=== PATIENT | male | born 1945 | race Caucasian/White ===

== ENCOUNTER 2018-08-30 06:09 | Day surgery (SDC) | payer OTHER, MEDICARE ==
[2018-08-19 12:44] VITALS: BMI 21.3
[2018-08-30] MEDS ORDERED: oxyCODONE HCL 10 MG SUSTAINED ACTING TABLET PO ONE (07:14)
[2018-08-30] MEDS ORDERED: THROMBIN (RECOMBINANT) 5,000 UNIT VIAL TP ONE (07:19)
[2018-08-30] MEDS ORDERED: GUM MASTIC/STORAX/MSAL/ALCOHOL 1 DRP DROPSBTL MC ONE (07:19)
[2018-08-30] MEDS ORDERED: LIDOCAINE 1%/EPI 1:100000 (20 ML MULTI DOSE VIAL) ONE (07:19)
[2018-08-30] MEDS ORDERED: methylPREDNISolone ACET (DEPO) 40 MG/1 ML VIAL ONE (07:19)
--- NOTE | 2018-08-30 07:46 | HP ---
History & Physical Update - History History: No Change - Physical Physical: No Change - Assessment Assessment: No Change - Plan Plan: No Change
[2018-08-30] MEDS ORDERED: MIDAZOLAM HCL 2 MG/2 ML SINGLE DOSE VIAL ONE ×2 (08:13→08:58)
[2018-08-30] MEDS ORDERED: SODIUM CHLORIDE 0.9% P/F 10 ML VIAL IJ ONE (08:14)
[2018-08-30] MEDS ORDERED: BUPIVACAINE HCL/PF (5 MG/ML) 30 ML VIAL IJ ONE (08:14)
[2018-08-30] MEDS ORDERED: SUCCINYLCHOLINE CHLORIDE 200 MG/10 ML VIAL ONE (08:58)
[2018-08-30] MEDS ORDERED: ONDANSETRON 4 MG/2 ML VIAL ONE (09:01)
[2018-08-30] MEDS ORDERED: DEXAMETHASONE SOD PHOSPHATE 4 MG/1 ML VIAL ONE (09:01)
[2018-08-30] MEDS ORDERED: ceFAZolin SODIUM 1 GM VIAL ONE (09:01)
[2018-08-30] MEDS ORDERED: LIDOCAINE 1%/EPI 1:100000 (50 ML MULTI DOSE VIAL) INF ONE (09:10)
[2018-08-30] MEDS ORDERED: GELATIN SPONGE,ABSORBABLE 1 GM PACKET TP ONE (09:24)
[2018-08-30] MEDS ORDERED: THROMBIN (BOVINE) 5,000 UNIT VIAL TP ONE (09:24)
[2018-08-30] MEDS ORDERED: methylPREDNISolone ACET (DEPO) 40 MG/1 ML VIAL IM ONE (10:06)
[2018-08-30] MEDS ORDERED: ONDANSETRON 4 MG/2 ML VIAL IVPUSH PRN (10:42)
[2018-08-30] MEDS ORDERED: PROMETHAZINE HCL 25 MG/1 ML VIAL IVPUSH PRN (10:42)
[2018-08-30] MEDS ORDERED: oxyCODONE HCL 5 MG TABLET PO PRN ×2 (10:42)
--- NOTE | 2018-08-30 10:42 | OP ---
Operative Note - Note: Operative Date: 08/30/18 Pre-Operative Diagnosis: lumbar stenosis Operation: lamiectomy of L2-L3 and L3-L4 Surgeon: Rashad Mederos Director Organizational: Perri Lizama Anesthesiologist/CONTINUITY READER: Mo Ingram Anesthesia: Spinal Estimated Blood Loss (mls): 20 Fluid Volume Replaced (mls): 600 Operative Report Dictated: Yes
--- NOTE | 2018-08-30 10:43 | SURG ---
Surgery Rubber Grinder Note Rubber Grinder: Perri Lizama PA-C Date of Service: 08/30/18 Diagnosis: lumbar stenosis Procedure: laminectomy of L2-L3 and L3-L4 I was present for the entirety of the operative procedure. For further detail, please refer to operative report. Visit type - Case Type Case Type: Scheduled - Emergency Emergency Visit: No - New patient This patient is new to me today: Yes Date on this admission: 08/30/18 - Critical Care Critical Care patient: No
[2018-08-30] MEDS ORDERED: ACETAMINOPHEN 325 MG TABLET (FP) PO SCH (10:45)
[2018-08-30 12:19] VITALS: PULSE 61
--- NOTE | 2018-08-30 12:26 | OP ---
DATE OF OPERATION: 08/30/2018 PREOPERATIVE DIAGNOSIS: Spinal stenosis L2-L4. POSTOPERATIVE DIAGNOSIS: Spinal stenosis L2-L4. PROCEDURE PERFORMED: Laminectomy L2-3 and L3-4. SURGEON: Rashad Mederos MD TRANSPORTATION ENGINEERING TECHNICIAN: LUDMILA Mg. ESTIMATED BLOOD LOSS: 50 mL. IV FLUIDS: Per Anesthesia. ANESTHESIA: Spinal/TLIP. COMPLICATIONS: None. DISPOSITION: The patient was brought to the PACU in stable condition. INDICATIONS OF SURGERY: The patient is a 73-year-old gentleman who has been suffering from pain from his neck down his legs. X-rays and MRI were completed which showed that he had spinal stenosis from L2-L4. He had gone through an exhaustive course of treatment for this which included medications, physical therapy as well as injections. Unfortunately, his pain continued to persist despite all of this. At this point the risks, benefits, and alternatives were discussed and the patient consented to surgery. DESCRIPTION OF PROCEDURE: The patient was brought to the operating room by anesthesia staff. After appropriate patient identification was performed, a spinal anesthesia was given along with a TLIP block. The patient was able to position himself prone onto the OR table with all areas of bony prominences well padded at this time. Two needles were placed into the back to glenna off the L2-L4 segments. An x-ray was taken to confirm this was correct. The needle was removed and 10 mL of lidocaine with epinephrine was injected into his back at this time. His back was prepped and draped in a sterile manner. At this point, a time-out was completed and an incision was made from the top of L2 down to the bottom of L4. Dissection was carried down to the fascia. The fascia was split up at this time. An appropriate retractor was then placed and a spinal needle was placed onto the L2 lamina to glenna off the L2 disc space. X-rays were taken to verify the needle was removed and that the L2-L3 and L4s were removed. The spinous process of L3 was removed. A donovan was used to remove the lamina of L3. The lamina was completely removed and the flavum was removed and complete decompression was performed. By the end of the procedure the L3 and L4 nerve roots appeared to be well decompressed. All bleeding was well controlled at this time. Steroid was placed over the nerve root and Floseal was placed over that. The fascia was closed with a No. 1 Vicryl, the subcutaneous tissues were closed with 2-0 Vicryl sutures, and the skin was closed with 3-0 Monocryl sutures. Dermabond was applied. Steri-Strips were applied. A sterile dressing was applied. The patient was placed supine on the OR bed and brought to the PACU in stable condition. Radha JEWELL/[id number]
[2018-08-30 12:56] VITALS: TEMP 98.4
[2018-08-30 15:52] VITALS: BP 155/82
== END 2018-08-30 14:35 | disposition home or self-care (01) ==
LOC: FASU 06:09
PROVIDERS: ATTEND Orthopaedic Surgery Orthopaedic Surgery of the Spine
PROC: 01NB0ZZ Release Lumbar Nerve, Open Approach (ICD-10-PCS; principal; 2018-08-30 08:15)
DX: M48.061 Spinal stenosis, lumbar region without neurogenic claudication (principal)
CPT/HCPCS: 72100-TC-FY; 77002-TC-FY; 94760